=== PATIENT | female | born 1940 | race Caucasian/White ===

== ENCOUNTER 2017-05-15 09:42 | Outpatient (CLI) | payer OTHER ==
[~2017-05-15 09:42] MED LIST: ASA81 MG; ASPIR 8181 MG PO; COREG PO; COZAAR100 MG PO; HYZAAR 100/25 T1 TAB; PLAVIX75 MG PO; SYNTHROID PO; SYNTHROID50 MCG; SYNTHROID50 MCG PO; XARELTO PO; [UNRECOGNIZED DRUG - OTHER] TP
== END 2017-05-15 13:03 | disposition home or self-care (01) ==
LOC: MRI 09:42
DX: M51.36 Other intervertebral disc degeneration, lumbar region (principal)
CPT/HCPCS: 72148

== ENCOUNTER 2017-08-09 13:13 | Inpatient (IN) | payer OTHER ==
[~2017-08-09] VITALS: Ht 154.9 cm; Wt 67.6 kg
[2017-08-09] MEDS ORDERED: LIPITOR20 MG PO (13:36)
[2017-08-15] MEDS ORDERED: COLACE100 MG PO (14:10)
[2017-08-15] MEDS ORDERED: NEURONTIN800 MG PO (14:10)
[2017-08-15] MEDS ORDERED: AMOX-CLAV 875-1 EACH PO (14:11)
[2017-08-15] MEDS ORDERED: PERCOCET 5-3251 EACH PO (14:12)
[2017-08-15] MEDS ORDERED: CLONAZEPAM1 MG PO (14:12)
== END 2017-08-16 13:22 | disposition home or self-care (01) | DRG 460 ==
LOC: O/R 08-12 05:50 → SURH 08-12 05:50 → O/R 08-15 06:00 → SURH 08-15 22:44
PROVIDERS: Orthopaedic Surgery Orthopaedic Surgery of the Spine
PROC: 0SG10AJ Fusion of 2 or more Lumbar Vertebral Joints with Interbody Fusion Device, Posterior Approach, Anterior Column, Open Approach (ICD-10-PCS; 2017-08-15)
PROC: 0ST20ZZ Resection of Lumbar Vertebral Disc, Open Approach (ICD-10-PCS; 2017-08-15)
PROC: 07DS3ZZ Extraction of Vertebral Bone Marrow, Percutaneous Approach (ICD-10-PCS; 2017-08-15)
PROC: 0SG10A0 Fusion of 2 or more Lumbar Vertebral Joints with Interbody Fusion Device, Anterior Approach, Anterior Column, Open Approach (ICD-10-PCS; principal; 2017-08-15 16:00)
DX: M47.26 Other spondylosis with radiculopathy, lumbar region (principal); M51.16 Intervertebral disc disorders with radiculopathy, lumbar region; M48.061 Spinal stenosis, lumbar region without neurogenic claudication; I48.0 Paroxysmal atrial fibrillation; E03.8 Other specified hypothyroidism; N84.0 Polyp of corpus uteri; I11.9 Hypertensive heart disease without heart failure; R26.89 Other abnormalities of gait and mobility

== ENCOUNTER 2017-10-07 12:18 | Outpatient (CLI) | payer OTHER ==
[~2017-10-07 12:18] MED LIST changes: +AMOX-CLAV 875-1 EACH PO; +CLONAZEPAM1 MG PO; +COLACE100 MG PO; +LIPITOR20 MG PO; +NEURONTIN800 MG PO; +PERCOCET 5-3251 EACH PO
== END 2017-10-07 17:00 | disposition home or self-care (01) ==
LOC: RAD 12:18
DX: M48.07 Spinal stenosis, lumbosacral region (principal); Z98.1 Arthrodesis status

== ENCOUNTER 2021-03-17 12:46 | Emergency (ER) | payer OTHER ==
[~2021-03-17] VITALS: Ht 154.9 cm; Wt 69.4 kg
== END 2021-03-17 17:28 | disposition home or self-care (01) ==
LOC: ER 12:46 → CPU-OBS 12:48 → ER 12:48
DX: R07.89 Other chest pain (principal); M89.8X1 Other specified disorders of bone, shoulder; E87.6 Hypokalemia; Z03.818 Encounter for observation for suspected exposure to other biological agents ruled out

== ENCOUNTER 2021-06-10 14:32 | Emergency (ER) | payer OTHER ==
[~2021-06-10] VITALS: Ht 154.9 cm; Wt 61.2 kg
== END 2021-06-10 17:42 | disposition home or self-care (01) ==
LOC: ER 14:32
DX: R10.2 Pelvic and perineal pain (principal)

== ENCOUNTER 2021-07-20 10:13 | Outpatient (CLI) | payer OTHER | END 2021-07-20 10:14 | disposition home or self-care (01) | LOC: NUCLEAR 10:13 | PROVIDERS: ATTEND Internal Medicine | DX: G30.0 Alzheimer's disease with early onset (principal) | CPT/HCPCS: 78803; A9557 ==

== ENCOUNTER 2021-11-20 05:06 | Day surgery (SDC) | payer OTHER ==
[~2021-11-20] VITALS: Ht 154.9 cm; Wt 68.0 kg
[~2021-11-20 05:06] MED LIST changes: +synth PO
== END 2021-11-20 15:45 | disposition home or self-care (01) ==
LOC: CIR.AMB 05:06
PROVIDERS: ATTEND Obstetrics & Gynecology
DX: D25.9 Leiomyoma of uterus, unspecified (principal); Z20.822 Contact with and (suspected) exposure to COVID-19; I48.91 Unspecified atrial fibrillation; I10 Essential (primary) hypertension; E03.9 Hypothyroidism, unspecified

== ENCOUNTER → 2021-11-20 06:22 | Outpatient (CLI) | payer OTHER | END | disposition home or self-care (01) | LOC: LAB 06:22 | PROVIDERS: ATTEND Obstetrics & Gynecology | DX: Z01.818 Encounter for other preprocedural examination (principal); I10 Essential (primary) hypertension; D68.8 Other specified coagulation defects; E03.9 Hypothyroidism, unspecified; E78.00 Pure hypercholesterolemia, unspecified; Z20.828 Contact with and (suspected) exposure to other viral communicable diseases ==

== ENCOUNTER 2023-03-11 05:55 | Day surgery (SDC) | payer OTHER ==
[2023-03-06 08:37] LABS: HEMATOCRIT 37.4 % (36.0-45.00); HEMOGLOBIN 12.7 g/dL (12.0-15.00); MEAN CELL VOLUME 96.1 fL (80.00-100.00); MEAN CORPUSCULAR HEMOGLOBIN 32.6 pg (27.00-32.0); MEAN CORPUSCULAR HGB CONC 33.9 g/dl (32.0-36.0); PLATELET COUNT 231 K/uL (150-450); RED BLOOD COUNT 3.89 M/uL (4.00-6.00); RED CELL DISTRIBUTION WIDTH 13.5 % (11.5-14.5)
[2023-03-06 09:00] LABS: INR 1.35; PARTIAL THROMBOPLASTIN TIME 30.2 SECONDS (22.0-34.0); PROTHROMBIN TIME 13.9 SECONDS (9.0-11.5)
[2023-03-06 09:17] LABS: ALBUMIN 3.6 gm/dL (3.4-5.0); BILIRUBIN TOTAL 0.58 mg/dL (0.3-1.2); CALCIUM 9.2 mg/dL (8.5-10.1); CREATININE SERUM 0.89 mg/dL (0.55-1.02); GFR 60.87; GLOBULINA 3.7 G/DL (2.4-3.5); POTASSIUM 3.99 mEq/L (3.5-5.1); TOTAL PROTEIN 7.3 gm/dL (6.4-8.2)
[2023-03-06 09:32] LABS: URINE APPEARANCE Clear; URINE BACTERIA 211.5 uL (0.0-1933); URINE BILIRRUBIN Negative (NEGATIVE); URINE BLOOD Trace; URINE COLOR Yellow; URINE EPITHELIAL CELLS 47.4 uL (0.0-38.8); URINE GLUCOSE Negative (NEGATIVE); URINE LEUKOCYTE Moderate; URINE NITRATE Negative; URINE PROTEIN Negative (NEGATIVE); URINE RBC 5.4 uL (0.0-20.8); URINE UROBILINOGEN 0.2 E.U./dl; URINE WBC 70.1 uL (0.0-23.2)
[~2023-03-11 05:55] MED LIST changes: +XARELTO20 MG PO
[2023-03-11 07:12] LABS: INR 1.24; PARTIAL THROMBOPLASTIN TIME 27.2 SECONDS (22.0-34.0); PROTHROMBIN TIME 12.8 SECONDS (9.0-11.5)
== END 2023-03-11 17:50 | disposition home or self-care (01) ==
LOC: CIR.AMB 05:55
PROVIDERS: ATTEND Obstetrics & Gynecology
DX: N84.0 Polyp of corpus uteri (principal); D25.0 Submucous leiomyoma of uterus; I10 Essential (primary) hypertension; Z20.822 Contact with and (suspected) exposure to COVID-19; E03.9 Hypothyroidism, unspecified